=== PATIENT | male | born 1970 | race Two or more races ===

== ENCOUNTER 2021-06-16 15:43 | Inpatient (IN) | payer OTHER ==
[~2021-06-16] VITALS: Ht 167.6 cm; Wt 75.0 kg
[2021-06-16] MEDS ORDERED: KETOROLAC TROMETHAMINE 30 MG/ML VIAL IVP ONE (16:00)
[2021-06-16] MEDS ORDERED: ONDANSETRON HCL 4 MG/2 ML VIAL IVP ONE (16:00)
[2021-06-16] MEDS ORDERED: SODIUM CHLORIDE 0.9% 1,000 ML IV ONE (16:00)
[2021-06-16 16:25] LABS: BASOPHILS % (AUTO) 0.5 % (0.0-2.0); EOSINOPHILS % (AUTO) 0.8 % (1.0-6.0); HEMATOCRIT 42.7 % (41-53); HEMOGLOBIN 14.7 g/dL (13.5-17.5); LYMPHOCYTES # (AUTO) 1.2 K/uL (1.0-4.8); LYMPHOCYTES % (AUTO) 19.7 % (22.0-44.0); MEAN CORPUSCULAR HEMOGLOBIN 29.4 pg (26.0-34.0); MEAN CORPUSCULAR HGB CONC 34.4 G/dL (31.0-37.0); MEAN CORPUSCULAR VOLUME 85 fL (80-100); MONOCYTES # (AUTO) 0.5 K/uL (0.1-1.0); MONOCYTES % (AUTO) 7.4 % (2.0-9.0); NEUTROPHILS # (AUTO) 4.5 K/uL (1.8-7.7); NEUTROPHILS % (AUTO) 71.6 % (40.0-70.0); PLATELET COUNT (AUTO) 348 K/uL (150-450); RED CELL DISTRIBUTION WIDTH 13.9 % (11.5-14.5)
[2021-06-16 16:29] LABS: COVID AG,FIA SOURCE NASOPHARYNGEAL
[2021-06-16 16:34] LABS: ANION GAP 6 mmol/L (8-16); CALCIUM, TOTAL 8.8 mg/dL (8.8-10.5); CARBON DIOXIDE 27 mmol/L (22-29); CHLORIDE 105 mmol/L (98-107); CREATININE 0.91 mg/dL (0.60-1.30); GLOMERULAR FILTR. RATE CALC > 60 mL/min (>60); GLUCOSE,RANDOM 146 mg/dL (70-110); POTASSIUM 3.3 mmol/L (3.5-5.1); SODIUM SERUM 138 mmol/L (136-145); UREA NITROGEN, BLOOD 19 mg/dL (7-18)
[2021-06-16 16:40] LABS: ALANINE AMINOTRANSFERASE 45 U/L (12-78); ALBUMIN 3.4 g/dL (3.4-5.0); ALKALINE PHOSPHATASE 87 U/L (46-116); ASPARTATE AMINOTRANSFERASE 53 U/L (15-37); BILIRUBIN,TOTAL 0.4 mg/dL (0.1-1.0); TOTAL PROTEIN, SERUM 7.7 g/dL (6.4-8.2)
[2021-06-16] MEDS ORDERED: ONDANSETRON HCL 4 MG/2 ML VIAL IVP PRN ×2 (16:45→21:00)
[2021-06-16] MEDS ORDERED: ACETAMINOPHEN 325 MG TABLET PO PRN ×3 (16:45→21:00)
[2021-06-16 19:14] VITALS: BP 110/59
[2021-06-16 20:40] VITALS: BP 113/54
[2021-06-16] MEDS ORDERED: LOPERAMIDE HCL 2 MG/15 ML SUSPENSION UDCUP PO PRN (21:00)
[2021-06-16] MEDS ORDERED: PROMETHAZINE HCL 25 MG TABLET PO PRN (21:00)
[2021-06-16] MEDS ORDERED: HydrOXYzine PAMOATE 50 MG CAPSULE PO PRN (21:00)
[2021-06-16] MEDS: DOCUSATE SODIUM 100 MG CAPSULE PO SCH (21:00)
[2021-06-16] MEDS ORDERED: LORazepam 1 MG TABLET PO PRN (21:00)
[2021-06-16] MEDS ORDERED: IBUPROFEN 600 MG TABLET PO PRN (21:00)
[2021-06-16] MEDS ORDERED: BACLOFEN 10 MG TABLET PO PRN (21:00)
[2021-06-16] MEDS ORDERED: DICYCLOMINE HCL 10 MG CAPSULE PO PRN (21:00)
[2021-06-16] MEDS ORDERED: HYDROCODONE/ACETAMINOPHEN 5-325 MG TABLET PO PRN (21:00)
[2021-06-16] MEDS ORDERED: ZOLPIDEM TARTRATE 5 MG TABLET PO PRN (21:00)
[2021-06-16] MEDS ORDERED: MAG HYDROX/AL HYDROX/SIMETH ES 30 ML SUSPENSION UDCUP PO PRN (21:00)
[2021-06-16] MEDS ORDERED: MORPHINE SULFATE 2 MG/ML SYRINGE IVP PRN (21:00)
[2021-06-16] MEDS ORDERED: SODIUM CHLORIDE 0.45% 1,000 ML IV SCH (21:00)
[2021-06-16] MEDS ORDERED: BISACODYL 10 MG RECTAL RECTAL SUPPOSITORY PR PRN (21:00)
[2021-06-16] MEDS ORDERED: ALBUTEROL SULFATE 2.5 MG/0.5 ML NEB SOLUTION NEB PRN (21:00)
[2021-06-16] MEDS ORDERED: CloNIDine HCL 0.1 MG TABLET PO PRN (21:00)
[2021-06-16] MEDS ORDERED: IPRATROPIUM BROMIDE 0.5 MG/2.5 ML NEB SOLUTION NEB PRN (21:00)
[2021-06-16] MEDS ORDERED: TraZODone HCL 50 MG TABLET PO PRN (21:00)
[2021-06-16] MEDS ORDERED: MAGNESIUM HYDROXIDE SUSPENSION 30 ML UDCUP PO PRN (21:00)
[2021-06-17 04:08] VITALS: BP 93/54
[2021-06-17] MEDS: DOCUSATE SODIUM 100 MG CAPSULE PO SCH ×3 (09:05→22:15)
[2021-06-17] MEDS: PANTOPRAZOLE SODIUM 40 MG/VIAL IVP SCH (09:05)
[2021-06-17] MEDS: HEPARIN SODIUM,PORCINE 5,000 UNITS/ML VIAL SQ SCH ×3 (09:05→15:57)
[2021-06-17 16:10] VITALS: BP 116/67
[2021-06-17 20:00] VITALS: BP 104/56
[2021-06-18] MEDS: HEPARIN SODIUM,PORCINE 5,000 UNITS/ML VIAL SQ SCH ×2 (00:50→08:15)
[2021-06-18 05:18] VITALS: BP 103/65
[2021-06-18] MEDS: PANTOPRAZOLE SODIUM 40 MG/VIAL IVP SCH (08:15)
[2021-06-18] MEDS: DOCUSATE SODIUM 100 MG CAPSULE PO SCH (08:15)
[2021-06-18 08:33] VITALS: BP 119/75
[2021-06-18 12:18] VITALS: BP 111/68
[2021-06-18] MEDS ORDERED: POTASSIUM CHLORIDE 20 MEQ ER TABLET PO ONE (15:00)
== END 2021-06-18 15:30 | DRG 897 ==
LOC: EMS 15:43 → 6S 17:43
PROVIDERS: ADMIT Hospitalist; ATTEND Hospitalist
DX: F11.13 Opioid abuse with withdrawal (principal); E87.6 Hypokalemia; F41.9 Anxiety disorder, unspecified; Z20.822 Contact with and (suspected) exposure to COVID-19; Z72.0 Tobacco use; Z71.6 Tobacco abuse counseling
CPT/HCPCS: 80053; 85025; 99285; C9113; J1644; J1885; J2405